=== PATIENT | female | born 1995 | race Caucasian/White ===

== ENCOUNTER → 2018-01-24 | Outpatient (CLI) | payer OTHER ==
[~2018-01-24] MED LIST: ACHYD1T PO; AMOX-358 PO; DCS100C PO; IBUP-1773 PO; METR500T PO; PREN-115 PO
--- NOTE | 2018-01-24 20:54 | Diagnostic Imaging Report ---
INDICATION: Left breast lump for four years. EXAMINATION: Sonographic interrogation of the area of lump of the left breast was performed. FINDINGS: There is an ovoid, circumscribed heterogeneous mass at the 1:30 location of the left breast, approximately 8 cm from the nipple. This measures 3.4 x 1.9 x 4.1 cm. No significant internal vascularity is seen. No other abnormalities are detected. IMPRESSION: Circumscribed, ovoid solid mass at the 1:30 location of the left breast corresponding to the palpable abnormality. Imaging features are not classic for fibroadenoma. Possibility of a hamartoma or perhaps phyllodes tumor cannot be entirely excluded. Tissue sampling would be recommended. This would be amenable to ultrasound-guided core biopsy. ACR BI-RADS Category 4: Suspicious abnormality. Result letter will be mailed to the patient. Note: At least 10% of breast cancer is not imaged by mammography. Dictated by: Dictated on workstation # [id number]
== END ==
LOC: RAD 14:08
PROVIDERS: ATTEND Nurse Practitioner Family
DX: N63.21 Unspecified lump in the left breast, upper outer quadrant (principal)
CPT/HCPCS: 76642

== ENCOUNTER → 2018-02-06 | Outpatient (CLI) | payer OTHER ==
[~2018-02-06] VITALS: Ht 160 cm; Wt 70.8 kg
[~2018-02-06] MED LIST changes: +LIDOCAINE 1% INJ 20 ML 20 ML VIAL INJ ONE; +LIDOCAINE 1% INJ 20 ML 20 ML VIAL ONE
[2018-02-06 12:40] VITALS: BP 118/61
[2018-02-06 13:00] VITALS: BP 121/84
--- NOTE | 2018-02-06 18:50 | Diagnostic Imaging Report ---
INDICATION: Left breast mass. EXAMINATION: Ultrasound-guided biopsy of the left breast. FINDINGS: The left breast ultrasound exam performed on 01/24/2018 noted circumscribed ovoid solid mass in the 1:30 position of the breast measuring approximately 3.4 x 1.9 x 1.4 cm. This does not have the typical appearance of a fibroadenoma and the possibility that this is related to a breast hamartoma or phyllodes tumor was raised. Following aseptic preparation of the skin and administration of local anesthesia, the area in question was biopsied with a 14-gauge Bard biopsy needle using ultrasound guidance. Five passes were made. The patient tolerated the procedure well and was dismissed in good condition. A clip was not inserted. IMPRESSION: There has been successful ultrasound biopsy of the lesion in question. A final pathology report is pending. Dictated by: Dictated on workstation # [id number]
== END ==
LOC: RAD 12:23
PROVIDERS: ATTEND Nurse Practitioner Family
DX: N63.21 Unspecified lump in the left breast, upper outer quadrant (principal)
CPT/HCPCS: 19083; 88305

== ENCOUNTER 2022-02-02 21:03 | Emergency (ER) | payer SELFPAY ==
[~2022-02-02 21:03] MED LIST changes: -LIDOCAINE 1% INJ 20 ML 20 ML VIAL INJ ONE; -LIDOCAINE 1% INJ 20 ML 20 ML VIAL ONE
--- NOTE | 2022-02-02 21:31 | ED Integumentary General ---
General Stated Complaint: BITE ON ARM Source: patient Exam Limitations: no limitations History of Present Illness Date Seen by Provider: Feb 02, 2022 Time Seen by Provider: 21:10 Initial Comments Patient to the ER by private conveyance with chief complaint of last night she was sitting on her porch and a cat that they routinely feed from the alley came up and was rubbing on her legs. She bent down to pet it and it became aggressive and scratched her right forearm. No deep bite. No redness or drainage. She just cleaned the wound with antiseptic soap and Band-Aids. She does not like the cats up-to-date on any vaccinations. She is never been vaccinated for rabies. The cat does come around daily and they feed it in the alley. Allergies and Home Medications Allergies Coded Allergies: No Known Drug Allergies (Unverified , 09/04/13) Patient Home Medication List Home Medication List Reviewed: Yes Ibuprofen (Rx-Motrin) 600 Mg Tab, 600 MG PO Q6H PRN for PAIN Prescribed by: LUCERO ELLIOTT on 09/08/13 0826 Review of Systems Review of Systems Constitutional: No chills, No diaphoresis EENTM: No ear discharge, No ear pain Respiratory: No cough, No short of breath Cardiovascular: No chest pain, No palpitations Gastrointestinal: No abdominal pain, No nausea, No vomiting Genitourinary: No discharge, No dysuria Skin: see HPI All Other Systems Reviewed Negative Unless Noted: Yes Past Xoqinma-Agakyu-Zgffbd Hx Patient Social History Tobacco Use?: Yes Tobacco type used: Cigarettes Use of E-Cig and/or Vaping dev: No Substance use?: No Alcohol Use?: No Immunizations Up To Date Tetanus Booster (TDap): Unknown PED Vaccines UTD: No Past Medical History Section Reproductive Disorders: No COMPLIANCE OFFICER History: IUD Eczema Adverse Reaction/Blood Tranf: No Family Medical History Family history: Diabetes mellitus GRANDFATHER Family history: Hypertension GRANDFATHER No Pertinent Family Hx Physical Exam Vital Signs Capillary Refill : General Appearance: WD/WN, no apparent distress HEENT: PERRL/EOMI, pharynx normal Neck: full range of motion, normal inspection Cardiovascular: normal peripheral pulses, regular rate, rhythm Respiratory: no respiratory distress, no accessory muscle use Skin: normal color, warm/dry, other (Superficial scratches in the outer dermal layer of the dorsum of the right forearm radial side. 1 wound is approximately a 2 cm long and the other is less than a centimeter. No significant induration, erythema or drainage.) Progress/Results/Core Measures Progress Progress Note : Time: 21:27 Progress Note Instructed her to continue to feed the cat and observe it for the next 10 days. Return precautions were given. We did offer a prophylactic antibiotic but she said she will just follow-up with urgent care if it looks infected. I do not suspect its very likely that this will become infected given the superficial nature. Departure Impression Primary Impression: Cat bite involving extremity Disposition: 01 HOME, SELF-CARE Condition: Stable Departure-Patient Inst. Decision time for Depature: 21:28 Referrals: RAFAT VALERIO DO (PCP) Primary Care Physician SHERRILL FUNEZ APRN (Family) Primary Care Physician Patient Instructions: Animal Bites (DC) Add. Discharge Instructions: Keep the wounds clean with regular soap and water and open to air. Follow-up with your doctor or return to the ER if you are getting redness going up your arm, increased swelling, pain or fever. Continue to feed and keep an eye on the For the next 10 days. If it is acting bizarrely, pushing his head against rosen, rolling around, fighting incessantly with anything that comes near it or dies before the 10-day observation period then you are to return promptly to the nearest ER for rabies vaccination and immunoglobulin. LELA SIM Feb 02, 2022 21:30
[2022-02-02 21:34] VITALS: BP 114/80
== END 2022-02-02 21:34 | disposition home or self-care (01) ==
LOC: EDUNIT# 21:03 → ER 21:05
DX: S51.851A Open bite of right forearm, initial encounter (principal); F17.210 Nicotine dependence, cigarettes, uncomplicated; W55.01XA Bitten by cat, initial encounter
CPT/HCPCS: 99283